=== PATIENT | male | born 1955 | race Caucasian/White ===

== ENCOUNTER 2020-03-29 08:39 | Emergency (ER) | payer OTHER ==
--- NOTE | 2020-03-29 08:59 | EDM.PDOC ---
ED HPI GENERAL MEDICAL PROBLEM - General Chief Complaint: Cardiovascular Problem Stated Complaint: SENT FROM [facility] Time Seen by Provider: 03/29/20 08:53 Source of Information: Reports: Patient History Limitations: Reports: No Limitations - History of Present Illness INITIAL COMMENTS - FREE TEXT/NARRATIVE: 64-year-old male presents to the ED generally just not feeling well. He states he started to feel unwell about 1400 hrs. yesterday afternoon while at work. 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 Still has a bit of a frontal headache. Also had a vague pressure in his anterior central chest which is still present but very mild this morning. Did not sleep very well last night. Went to the walk-in clinic today and was identified to be hypertensive. He used to be on blood pressure medication when he moved from [facility] his medications were never refilled. Smokes pack to a pack and half of cigarettes daily. Has a 19-hvpl-eqbv history. He has no known cardiac disease no previous stroke. Denies feeling dizzy lightheaded or short of breath. Onset: Gradual Onset Date: 03/28/20 Onset Time: 14:00 (Did feel generally unwell yesterday afternoon about 1400 hrs. He stayed at work until about 1600 hrs. and went home) Duration: Hour(s):, Constant Location: Reports: Chest, Generalized (Generally not feeling well. Frontal headache etc.) Quality: Reports: Pressure Severity: Mild Improves with: Reports: None Worsens with: Reports: None, Other Context: Denies: Activity, Exercise (Walking activity do not seem to make the chest pressure any worse.), Lifting, Sick Contact, Trauma, Other Associated Symptoms: Reports: Chest Pain (Is no sputum production as he is a smoker.), Cough, cough w sputum, Headaches, Malaise. 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: Reports: Other (see below) (Patient date did take 324 mg of aspirin this morning) Chest Pain Score (Numeric/FACES): 5 - Related Data Allergies Allergy/AdvReac Type Severity Reaction Status Date / Time No Known Allergies Allergy Verified 03/29/20 08:48 Home Meds: Home Meds Aspirin 324 mg PO DAILY 03/29/20 [History] Losartan [Cozaar] 100 mg PO DAILY #30 tab 03/29/20 [Rx] Omeprazole Magnesium [Prilosec Otc] 20 mg PO DAILY 03/29/20 [History] amLODIPine [Norvasc] 10 mg PO DAILY #30 tab 03/29/20 [Rx] Past Medical History HEENT History: Reports: None Cardiovascular History: Reports: High Cholesterol, Hypertension Respiratory History: Reports: None Gastrointestinal History: Reports: GERD (Takes omeprazole daily.) Genitourinary History: Reports: None Musculoskeletal History: Reports: None Psychiatric History: Reports: None Endocrine/Metabolic History: Reports: None Hematologic History: Reports: None Immunologic History: Reports: None Oncologic (Cancer) History: Reports: None Dermatologic History: Reports: None - Infectious Disease History Infectious Disease History: Reports: None - Past Surgical History Neurological Surgical History: Reports: C-Spine, Spinal Fusion Social & Family History - Tobacco Use Smoking Status *Q: Current Every Day Smoker (72-20-uefl-year history.) Tobacco Use Within Last Twelve Months: Cigarettes Years of Tobacco use: 46 Packs/Tins Daily: 1.5 - Caffeine Use Caffeine Use: Reports: Coffee - Alcohol Use Alcohol Use History: Yes Days Per Week of Alcohol Use: 7 Days Per Week of Alcohol Use Comment: Really has 2 drinks of bourbon after work and 1 before bed nightly. Number of Drinks Per Day: 3 Total Drinks Per Week: 21 Alcohol Use Frequency: Daily - Recreational Drug Use Recreational Drug Use: No - Living Situation & Occupation Occupation: Employed ED ROS GENERAL - Review of Systems Review Of Systems: See Below Constitutional: Reports: Malaise, Fatigue, Decreased Appetite. Denies: Fever, Chills HEENT: Reports: Glasses Respiratory: Reports: Cough, Sputum (Occasional sputum production.). Denies: Shortness of Breath, Wheezing, Pleuritic Chest Pain Cardiovascular: Reports: Chest Pain, Blood Pressure Problem (Chest discomfort since yesterday afternoon). Denies: Claudication ( diagnosed with hypertension 4 years ago but has been off medication since 2017.), Dyspnea on Exertion, Edema, Lightheadedness, Orthopnea, Palpitations Endocrine: Reports: Fatigue GI/Abdominal: Reports: No Symptoms : Reports: Frequency, Other (Nocturia x2.) Musculoskeletal: Reports: Back Pain, Joint Pain Skin: Reports: No Symptoms (His hips shoulders and neck at times) Neurological: Reports: No Symptoms Psychiatric: Reports: No Symptoms Hematologic/Lymphatic: Reports: No Symptoms Immunologic: Reports: No Symptoms ED EXAM, GENERAL - Physical Exam Exam: See Below Exam Limited By: No Limitations General Appearance: Alert, WD/WN, No Apparent Distress, Other (Temperature is 36.5 pulse is 60 and sinus respiratory 16 BP 173/88. Pulse ox 94% on room air) Eye Exam: Bilateral Eye: Normal Inspection, PERRL Neck: Normal Inspection, Full Range of Motion. No: Carotid Bruit, Lymphadenopathy (L), Lymphadenopathy (R), Thyromegaly Respiratory/Chest: No Respiratory Distress, Lungs Clear, Normal Breath Sounds, No Accessory Muscle Use. No: Wheezing Cardiovascular: Normal Peripheral Pulses, Regular Rate, Rhythm, No Edema, No Gallop, No Murmur, No Rub Peripheral Pulses: 2+: Posterior Tibial (L), Posterior Tibial (R), Dorsalis Pedis (L), Dorsalis Pedis (R) GI/Abdominal: Normal Bowel Sounds, Soft, Non-Tender, No Organomegaly, No Abnormal Bruit, No Mass, Pelvis Stable, Other (No surgical scars. I reexamined his abdomen after the CT identified aortic aneurysm and I can definitely feel the aneurysm on deep palpation in the midline.) Back Exam: Normal Inspection, Full Range of Motion. No: CVA Tenderness (L), CVA Tenderness (R) Extremities: Normal Inspection, Normal Range of Motion, Non-Tender, No Pedal Edema Neurological: Alert, Oriented, CN II-XII Intact, Normal Cognition, Normal Gait Psychiatric: Normal Affect, Normal Mood Skin Exam: Warm, Dry, Intact, Normal Color, No Rash EKG INTERPRETATION EKG Date: 03/29/20 Time: 08:54 Rhythm: NSR Rate (Beats/Min): 71 (First-degree AV block) [place]: Normal P-Wave: Enlarged (Consider left atrial hypertrophy.) QRS: Other (There are Q waves V1 V2 and V3 suggestive of an old anteroseptal myocardial infarction. The left ventricular perfect raphe pattern with strain.) ST-T: Other (T wave flattening in leads I and inverted in aVL nonspecific findings. Mildly decreased voltage in the limb leads.) QT: Prolonged (Mildly prolonged) EKG Interpretation Comments: Abnormal ECG Course - Vital Signs Last Recorded V/S: Last Vital Signs Temp 36.5 C 03/29/20 08:43 Pulse 56 L 03/29/20 10:25 Resp 16 03/29/20 10:25 BP 181/89 H 03/29/20 11:42 Pulse Ox 94 L 03/29/20 10:25 - Orders/Labs/Meds Orders: Active Orders 24 hr Category Date Time Status EKG 12 Lead [EKG Documentation Completion] [RC] ROUTINE Care 03/29/20 08:53 Active Dextrose 5%-0.9% NaCl [Dextrose 5%-Normal Saline] 1,000 Med 03/29/20 09:15 Active ml IV ASDIRECTED Sodium Chloride 0.9% [Normal Saline] 100 ml Med 03/29/20 11:00 Active IV ASDIRECTED Sodium Chloride 0.9% [Saline Flush] Med 03/29/20 10:46 Active 10 ml FLUSH ONETIME PRN Medication Orders Dextrose/Sodium Chloride (Dextrose 5%-Normal Saline) 1,000 mls @ 500 mls/hr IV ASDIRECTED KRIS Last Admin: 03/29/20 09:14 Dose: 500 mls/hr Documented by: KEAGAN Sodium Chloride (Normal Saline) 100 mls @ 75 mls/hr IV ASDIRECTED KRIS Last Admin: 03/29/20 10:59 Dose: 75 mls/hr Documented by: CIRO Sodium Chloride (Saline Flush) 10 ml FLUSH ONETIME PRN PRN Reason: IV FLUSH Last Admin: 03/29/20 10:59 Dose: 10 ml Documented by: CIRO Labs: Laboratory Tests 03/29/20 03/29/20 03/29/20 Range/Units 08:45 08:45 08:45 WBC 8.76 (4.23-9.07) K/mm3 RBC 4.94 (4.63-6.08) M/mm3 Hgb 15.0 (13.7-17.5) gm/dl Hct 44.3 (40.1-51.0) % MCV 89.7 (79.0-92.2) fl MCH 30.4 (25.7-32.2) pg MCHC 33.9 (32.2-35.5) g/dl RDW Std Deviation 46.1 H (35.1-43.9) fL Plt Count 279 (163-337) K/mm3 MPV 10.1 (9.4-12.3) fl Neut % (Auto) 64.9 (34.0-67.9) % Lymph % (Auto) 23.4 (21.8-53.1) % [place] % (Auto) 8.7 (5.3-12.2) % Eos % (Auto) 2.7 (0.8-7.0) Baso % (Auto) 0.2 (0.1-1.2) % Neut # (Auto) 5.68 H (1.78-5.38) K/mm3 Lymph # (Auto) 2.05 (1.32-3.57) K/mm3 [place] # (Auto) 0.76 (0.30-0.82) K/mm3 Eos # (Auto) 0.24 (0.04-0.54) K/mm3 Baso # (Auto) 0.02 (0.01-0.08) K/mm3 PT 10.2 (9.7-12.0) SECONDS INR 0.93 APTT (22-31) SECONDS D-Dimer, Quantitative (0.19-0.50) mg/L Sodium (136-145) mEq/L Potassium (3.5-5.1) mEq/L Chloride (98-107) mEq/L Carbon Dioxide (21-32) mEq/L Anion Gap (5-15) BUN (7-18) mg/dL Creatinine (0.7-1.3) mg/dL Est Cr Clr Drug Dosing mL/min Estimated GFR (MDRD) (>60) mL/min BUN/Creatinine Ratio (14-18) Glucose (80-115) mg/dL Calcium (8.5-10.1) mg/dL Magnesium 2.0 (1.8-2.4) mg/dl Total Bilirubin (0.2-1.0) mg/dL AST (15-37) U/L ALT (16-63) U/L Alkaline Phosphatase (46-116) U/L CK-MB (CK-2) 2.1 (0-3.6) ng/ml Troponin I < 0.017 (0.00-0.056) ng/mL C-Reactive Protein 0.6 (<1.0) mg/dL NT-Pro-B Natriuret Pep (0-125) pg/mL Total Protein (6.4-8.2) g/dl Albumin (3.4-5.0) g/dl Globulin gm/dL Albumin/Globulin Ratio (1-2) Urine Color (Yellow) Urine Appearance (Clear) Urine pH (5.0-8.0) Ur Specific [place] (1.005-1.030) Urine Protein (Negative) Urine Glucose (UA) (Negative) Urine Ketones (Negative) Urine Occult Blood (Negative) Urine Nitrite (Negative) Urine Bilirubin (Negative) Urine Urobilinogen (0.2-1.0) Ur Leukocyte Esterase (Negative) Urine RBC (0-5) /hpf Urine WBC (0-5) /hpf Ur Squamous Epith Cells (0-5) /hpf Urine Bacteria (FEW) /hpf Urine Mucus (FEW) /hpf 03/29/20 03/29/20 03/29/20 Range/Units 08:45 08:45 08:45 WBC (4.23-9.07) K/mm3 RBC (4.63-6.08) M/mm3 Hgb (13.7-17.5) gm/dl Hct (40.1-51.0) % MCV (79.0-92.2) fl MCH (25.7-32.2) pg MCHC (32.2-35.5) g/dl RDW Std Deviation (35.1-43.9) fL Plt Count (163-337) K/mm3 MPV (9.4-12.3) fl Neut % (Auto) (34.0-67.9) % Lymph % (Auto) (21.8-53.1) % [place] % (Auto) (5.3-12.2) % Eos % (Auto) (0.8-7.0) Baso % (Auto) (0.1-1.2) % Neut # (Auto) (1.78-5.38) K/mm3 Lymph # (Auto) (1.32-3.57) K/mm3 [place] # (Auto) (0.30-0.82) K/mm3 Eos # (Auto) (0.04-0.54) K/mm3 Baso # (Auto) (0.01-0.08) K/mm3 PT (9.7-12.0) SECONDS INR APTT 28 (22-31) SECONDS D-Dimer, Quantitative 0.98 H (0.19-0.50) mg/L Sodium 143 (136-145) mEq/L Potassium 3.7 (3.5-5.1) mEq/L Chloride 103 (98-107) mEq/L Carbon Dioxide 27 (21-32) mEq/L Anion Gap 16.7 H (5-15) BUN 14 (7-18) mg/dL Creatinine 1.0 (0.7-1.3) mg/dL Est Cr Clr Drug Dosing 86.77 mL/min Estimated GFR (MDRD) > 60 (>60) mL/min BUN/Creatinine Ratio 14.0 (14-18) Glucose 97 (80-115) mg/dL Calcium 9.1 (8.5-10.1) mg/dL Magnesium (1.8-2.4) mg/dl Total Bilirubin 0.4 (0.2-1.0) mg/dL AST 20 (15-37) U/L ALT 26 (16-63) U/L Alkaline Phosphatase 90 (46-116) U/L CK-MB (CK-2) (0-3.6) ng/ml Troponin I (0.00-0.056) ng/mL C-Reactive Protein (<1.0) mg/dL NT-Pro-B Natriuret Pep 526 H (0-125) pg/mL Total Protein 7.8 (6.4-8.2) g/dl Albumin 3.8 (3.4-5.0) g/dl Globulin 4.0 gm/dL Albumin/Globulin Ratio 1.0 (1-2) Urine Color (Yellow) Urine Appearance (Clear) Urine pH (5.0-8.0) Ur Specific [place] (1.005-1.030) Urine Protein (Negative) Urine Glucose (UA) (Negative) Urine Ketones (Negative) Urine Occult Blood (Negative) Urine Nitrite (Negative) Urine Bilirubin (Negative) Urine Urobilinogen (0.2-1.0) Ur Leukocyte Esterase (Negative) Urine RBC (0-5) /hpf Urine WBC (0-5) /hpf Ur Squamous Epith Cells (0-5) /hpf Urine Bacteria (FEW) /hpf Urine Mucus (FEW) /hpf 06/24/20 Range/Units 09:03 WBC (4.23-9.07) K/mm3 RBC (4.63-6.08) M/mm3 Hgb (13.7-17.5) gm/dl Hct (40.1-51.0) % MCV (79.0-92.2) fl MCH (25.7-32.2) pg MCHC (32.2-35.5) g/dl RDW Std Deviation (35.1-43.9) fL Plt Count (163-337) K/mm3 MPV (9.4-12.3) fl Neut % (Auto) (34.0-67.9) % Lymph % (Auto) (21.8-53.1) % [place] % (Auto) (5.3-12.2) % Eos % (Auto) (0.8-7.0) Baso % (Auto) (0.1-1.2) % Neut # (Auto) (1.78-5.38) K/mm3 Lymph # (Auto) (1.32-3.57) K/mm3 [place] # (Auto) (0.30-0.82) K/mm3 Eos # (Auto) (0.04-0.54) K/mm3 Baso # (Auto) (0.01-0.08) K/mm3 PT (9.7-12.0) SECONDS INR APTT (22-31) SECONDS D-Dimer, Quantitative (0.19-0.50) mg/L Sodium (136-145) mEq/L Potassium (3.5-5.1) mEq/L Chloride (98-107) mEq/L Carbon Dioxide (21-32) mEq/L Anion Gap (5-15) BUN (7-18) mg/dL Creatinine (0.7-1.3) mg/dL Est Cr Clr Drug Dosing mL/min Estimated GFR (MDRD) (>60) mL/min BUN/Creatinine Ratio (14-18) Glucose (80-115) mg/dL Calcium (8.5-10.1) mg/dL Magnesium (1.8-2.4) mg/dl Total Bilirubin (0.2-1.0) mg/dL AST (15-37) U/L ALT (16-63) U/L Alkaline Phosphatase (46-116) U/L CK-MB (CK-2) (0-3.6) ng/ml Troponin I (0.00-0.056) ng/mL C-Reactive Protein (<1.0) mg/dL NT-Pro-B Natriuret Pep (0-125) pg/mL Total Protein (6.4-8.2) g/dl Albumin (3.4-5.0) g/dl Globulin gm/dL Albumin/Globulin Ratio (1-2) Urine Color Yellow (Yellow) Urine Appearance Clear (Clear) Urine pH 7.5 (5.0-8.0) Ur Specific [place] 1.015 (1.005-1.030) Urine Protein Negative (Negative) Urine Glucose (UA) Negative (Negative) Urine Ketones Negative (Negative) Urine Occult Blood Trace-lysed H (Negative) Urine Nitrite Negative (Negative) Urine Bilirubin Negative (Negative) Urine Urobilinogen 0.2 (0.2-1.0) Ur Leukocyte Esterase Negative (Negative) Urine RBC 0-5 (0-5) /hpf Urine WBC 0-5 (0-5) /hpf Ur Squamous Epith Cells 0-5 (0-5) /hpf Urine Bacteria Rare (FEW) /hpf Urine Mucus Not seen (FEW) /hpf Meds: Medications Generic Name Dose Route Start Last Admin Trade Name Freq PRN Reason Stop Dose Admin Dextrose/Sodium Chloride 1,000 mls @ 500 mls/hr 03/29/20 09:15 03/29/20 09:14 Dextrose 5%-Normal Saline IV 500 mls/hr ASDIRECTED KRIS Administration Sodium Chloride 100 mls @ 75 mls/hr 03/29/20 11:00 03/29/20 10:59 Normal Saline IV 75 mls/hr ASDIRECTED KRIS Administration Sodium Chloride 10 ml 03/29/20 10:46 03/29/20 10:59 Saline Flush FLUSH 10 ml ONETIME PRN Administration IV FLUSH Discontinued Medications Generic Name Dose Route Start Last Admin Trade Name Freq PRN Reason Stop Dose Admin Amlodipine Besylate 10 mg 03/29/20 11:20 03/29/20 11:42 Norvasc PO 03/29/20 11:21 10 mg ONETIME ONE Administration Aspirin 324 mg 03/29/20 09:03 03/29/20 09:16 Aspirin PO 03/29/20 09:04 Not Given ONETIME ONE Enalaprilat 1.25 mg 03/29/20 11:17 03/29/20 11:40 Vasotec Iv IVPUSH 03/29/20 11:18 1.25 mg ONETIME ONE Administration Iopamidol 100 ml 03/29/20 10:46 03/29/20 10:59 [id number] (76%) IVPUSH 03/29/20 10:47 100 ml ONETIME ONE Administration - Radiology Interpretation Free Text/Narrative:: 64-year-old male attends the ED at the request of the walk-in clinic [place] at [place]. He presented there with elevated blood pressure and generally not feeling well with 1 of his complaints being mild central chest pressure discomfort since yesterday afternoon. Patient has a past history of hypertension and has been off medication since 2016 when he moved from [place] to to [place] he never sought a doctor or refill medications. He is a pack and half a day smoker. Therefore he has multiple risk factors for cardiovascular disease. He has a mild headache at this time very minimal mild central chest pressure discomfort. No shortness of breath. His ECG however shows evidence of an old anteroseptal myocardial infarction with left ventricular hypertrophy and strain pattern. Patient has no history of having myocardial infarction. Therefore he will have a complete cardiac work-up. He did take 325 mg of aspirin this morning. His chest pain is so mild that I will not place him on nitroglycerin at this time. ECG does not show anything acute. Plan portable chest x-ray routine labs and a urinalysis to be performed. Blood pressure be monitored. It was 173/88 on my last assessment - Re-Assessments/Exams Free Text/Narrative Re-Assessment/Exam: 03/29/20 09:35White count is 8.76. Auto differential shows 65% neutrophils. Hemoglobin is 15.0 with hematocrit of 44.3. MCV is normal at 89.7. Platelet count normal at 279,000. PT is 10.2 with an INR of 0.93. PTT is 28. D-dimer minimally elevated at 0.98. Urinalysis shows trace of lysed occult blood but no proteinuria. No signs of infection. Recheck on his blood pressure by myself was 136/80. Chest x-ray done portably is essentially within normal limits.'s are clear cardiac silhouette is upper limits of normal. 03/29/20 09:50Magnesium is 2.0. CK-MB fraction is 2.1 troponin I is less than 0.017. C-reactive protein is 0.6. BNP is mildly elevated at 526. CMP is pending to identify his renal function. It appears that we will have to proceed with a CT pulmonary angiogram. 03/29/20 10:31 Chemistry reveals a sodium of 143 potassium 3.7. Chloride 103 with a bicarb of 27. Anion gap is elevated at 16.7 indicating the patient is mildly volume depleted. BUN was 14 with a creatinine of 1.0. GFR is greater than 60. Glucose is 97 with a calcium of 9.1. Magnesium 2.0 liver function normal C-reactive protein 0.6. Total protein 7.8 with an albumin fraction of 3.8. Proceed with CT pulmonary angiogram due to elevated d-dimer. Patient advised that we will now proceed with a CT pulmonary angiogram to rule out a pulmonary embolism. 03/29/20 11:[address] Hector's nurse at [facility] in [place] and she will notify the patient later today with an appointment time. In the meantime I will fax records obtained on today's visit to Dr. Hector's office. I will place the patient on losartan 100 mg every morning and amlodipine 10 mg every night at bedtime. Does have a home blood pressure cuff that he will start writing down the numbers over the next several weeks so that we know we have gained control of his blood pressure. 03/29/20 12:04 The radiologist agrees with my finding of abdominal aortic aneurysm on CT scan. He measured at 45.9 cm. He agrees that there is no evidence of pulmonary emboli. Departure - Departure Time of Disposition: 11:49 Disposition: Home, Self-Care 01 Reason for Transfer *Q: Other Condition: Fair Clinical Impression: Non-cardiac chest pain, Abdominal aortic aneurysm (AAA) greater than 5.5 cm in diameter in male, Uncontrolled hypertension Nicotine dependence Qualifiers: Nicotine product type: cigarettes Substance use status: uncomplicated Qualified Code(s): F17.210 - Nicotine dependence, cigarettes, uncomplicated Hypertensive heart disease Qualifiers: Heart failure presence: with heart failure Heart failure type: unspecified Qualified Code(s): I11.0 - Hypertensive heart disease with heart failure Prescriptions: Losartan [Cozaar] 100 mg PO DAILY #30 tab amLODIPine [Norvasc] 10 mg PO DAILY #30 tab Instructions: Abdominal Aortic Aneurysm, [id number], Hypertension, Adult, [id number], Tobacco Use Disorder, Steps to Quit Smoking Referrals: Juan Alberto Thompson MD [Primary Care Provider] - Forms: ED Department Discharge Additional Instructions: Evaluation in the emergency room today in regards to nonspecific chest discomfort noted yesterday and generally not feeling all that well. Identified that your blood pressure was elevated at the clinic and your blood pressure readings with the wrist monitor/cuff reveal a blood pressure that is persistently elevated on the top number in the 180s. It should be 140 or less. The bottom number is mildly elevated at 88 and ideally we would like it under 85. Testing in the ED revealed that the heart is enlarged and indicates that your blood pressure has likely been elevated for a lengthy period of time causing the heart to enlarged similar to taking it to a gym and making it work harder. You will therefore need to take blood pressure medication losartan 100 mg every morning and amlodipine 10 mg every night at bedtime for blood pressure control. Continue to check your blood pressure with your cuff at home and write down the numbers and the time of day so that we know for sure we have gain control of your blood pressure. Lab test done today revealed that she developed a mild increased fluid in the lungs which we call congestive heart failure but is very minimal at this point time. Lab tests also revealed an elevated d-dimer suggesting that there could be a blood clot in the lungs and therefore a CT pulmonary angiogram of the chest was performed which revealed heart to be enlarged but no evidence of a blood clot in the lung. The CT also goes down to the upper abdomen and coincidentally identified a aortic abdominal aneurysm which means a ballooning of the abdominal aorta which is normally 2.5 cm in diameter. I measured yours at 6.2 cm and the radiologist measured it at 5.9 cm. This deserves immediate attention as once it goes past 5 cm there is a much higher risk of spontaneous rupture. Therefore contacted cardiovascular surgeon Dr. Hector in [place] at [facility] and his nurse will get back to you with an appointment time today ,to see him in consultation. Sepsis Event Note (ED) - Evaluation Sepsis Screening Result: No Definite Risk - Focused Exam Vital Signs: Vital Signs Temp Pulse Resp BP BP Pulse Ox 03/29/20 11:42 181/89 H 03/29/20 11:40 181/89 H 03/29/20 10:25 56 L 16 182/88 H 94 L 03/29/20 08:43 36.5 C 68 16 173/88 H 94 L - My Orders Last 24 Hours: My Active Orders 03/29/20 08:53 EKG 12 Lead [EKG Documentation Completion] [RC] ROUTINE 03/29/20 09:15 Dextrose 5%-0.9% NaCl [Dextrose 5%-Normal Saline] 1,000 ml IV ASDIRECTED 03/29/20 10:46 Sodium Chloride 0.9% [Saline Flush] 10 ml FLUSH ONETIME PRN 03/29/20 11:00 Sodium Chloride 0.9% [Normal Saline] 100 ml IV ASDIRECTED - Assessment/Plan Last 24 Hours: My Active Orders 03/29/20 08:53 EKG 12 Lead [EKG Documentation Completion] [RC] ROUTINE 03/29/20 09:15 Dextrose 5%-0.9% NaCl [Dextrose 5%-Normal Saline] 1,000 ml IV ASDIRECTED 03/29/20 10:46 Sodium Chloride 0.9% [Saline Flush] 10 ml FLUSH ONETIME PRN 03/29/20 11:00 Sodium Chloride 0.9% [Normal Saline] 100 ml IV ASDIRECTED
[2020-03-29] MEDS ORDERED: Aspirin 81 MG Tab.Chew PO ONE (09:03)
[2020-03-29] MEDS ORDERED: Dextrose 5%-0.9% NaCl 1,000 ML IV SCH (09:15)
--- NOTE | 2020-03-29 09:50 | CR ---
Chest: Portable view of the chest was obtained. Comparison: No prior chest imaging. Heart size and mediastinum are within normal limits for portable technique. Lungs are clear with no acute parenchymal change. Bony structures are grossly intact. Partially visualized prior cervical spine surgery is noted. Impression: 1. Nothing acute is appreciated on portable chest x-ray. Diagnostic code #2 This report was dictated in MDT
[2020-03-29] MEDS ORDERED: Sodium Chloride 0.9% 10 ML Syringe FLUSH PRN (10:46)
[2020-03-29] MEDS ORDERED: Iopamidol 755 Mg/ML 100 ML Bottle IVPUSH ONE (10:46)
[2020-03-29] MEDS ORDERED: Sodium Chloride 0.9% 100 ML IV SCH (11:00)
[2020-03-29] MEDS ORDERED: Enalaprilat 1.25 MG/ML SDV IVPUSH ONE (11:17)
[2020-03-29] MEDS ORDERED: amLODIPine 10 MG Tab PO ONE (11:20)
--- NOTE | 2020-03-29 11:21 | CT ---
CT chest Technique: Multiple axial sections through the chest were obtained. Intravenous contrast was utilized. Study has been performed as a pulmonary angiogram protocol. Findings: Pulmonary arteries are well-opacified. No filling defects are seen to indicate pulmonary embolism. Mediastinum and hilar regions show no adenopathy. Aorta shows atherosclerotic calcification without aneurysm. No pericardial thickening is seen. Heart is slightly enlarged. Abdominal aortic aneurysm is partially visualized within the abdomen which measures 5.9 cm. Lungs are clear with no acute parenchymal change. No pleural effusions are seen. Bone window settings were reviewed which shows previous lower cervical spine surgery. No acute osseous finding is appreciated. Impression: 1. Abdominal aortic aneurysm partially visualized measuring 5.9 cm. 2. No findings of pulmonary embolism. 3. No other acute finding is appreciated. Diagnostic code #3 This report was dictated in MDT
== END 2020-03-29 12:10 | disposition home or self-care (01) ==
LOC: JD.ED 08:39
DX: I11.0 Hypertensive heart disease with heart failure (principal); I50.9 Heart failure, unspecified; R07.89 Other chest pain; I71.4 Abdominal aortic aneurysm, without rupture; F17.210 Nicotine dependence, cigarettes, uncomplicated; I44.0 Atrioventricular block, first degree; K21.9 Gastro-esophageal reflux disease without esophagitis; Z79.82 Long term (current) use of aspirin; Z79.899 Other long term (current) drug therapy
CPT/HCPCS: 36415; 71045; 71275; 80053; 81001; 82553; 83735; 83880; 84484; 85025; 85379; 85610; 85730; 86140; 93005; 96374; 99285; A9270; J7042; J7050; Q9967

== ENCOUNTER 2021-11-09 14:01 | Emergency (ER) | payer OTHER ==
[2021-11-09] MEDS ORDERED: Sodium Chloride 0.9% 10 ML Syringe FLUSH PRN (14:23)
[2021-11-09] MEDS ORDERED: Potassium Chloride 20 MEQ Tab.ER PO ONE (14:57)
[2021-11-09 15:25] LABS: CORONAVIRUS COVID-19 NAA POSITIVE (NEGATIVE)
== END 2021-11-09 15:57 | disposition home or self-care (01) ==
LOC: JD.ED 14:01
DX: U07.1 COVID-19 (principal); E78.00 Pure hypercholesterolemia, unspecified; I10 Essential (primary) hypertension; K21.9 Gastro-esophageal reflux disease without esophagitis; Z79.899 Other long term (current) drug therapy; Z79.82 Long term (current) use of aspirin; Z72.0 Tobacco use
CPT/HCPCS: 0240U; 36415; 71045; 80053; 83735; 84484; 85025; 85610; 85730; 93005; 99285; A9270; 93010

== ENCOUNTER 2021-12-14 07:29 | Emergency (ER) | payer BC, MEDICARE ==
[2021-12-14] MEDS ORDERED: Aspirin 81 MG Tab.Chew PO ONE (08:00)
[2021-12-14] MEDS ORDERED: Sodium Chloride 0.9% 10 ML Syringe FLUSH PRN (09:20)
[2021-12-14] MEDS ORDERED: Iopamidol 755 Mg/ML 100 ML Bottle IVPUSH ONE (09:20)
[2021-12-14] MEDS ORDERED: Sodium Chloride 0.9% 100 ML IV SCH (09:30)
== END 2021-12-14 11:45 | disposition home or self-care (01) ==
LOC: JD.ED 07:29
DX: R07.89 Other chest pain (principal); I10 Essential (primary) hypertension; F17.200 Nicotine dependence, unspecified, uncomplicated; E78.00 Pure hypercholesterolemia, unspecified; Z79.82 Long term (current) use of aspirin; Z79.899 Other long term (current) drug therapy
CPT/HCPCS: 36415; 71045; 71275; 80053; 84484; 85025; 85379; 85610; 85730; 99285; A9270; Q9967; 93010

== ENCOUNTER 2022-06-24 00:33 | Emergency (ER) | payer MEDICARE, BC ==
[2022-06-24 01:31] LABS: ESTIMATED GFR 74 mL/min (>60)
[2022-06-24 02:45] LABS: CORONAVIRUS COVID-19 NAA POSITIVE (NEGATIVE)
== END 2022-06-24 03:20 | disposition home or self-care (01) ==
LOC: JD.ED 00:33
DX: U07.1 COVID-19 (principal); K21.9 Gastro-esophageal reflux disease without esophagitis; I10 Essential (primary) hypertension; E78.00 Pure hypercholesterolemia, unspecified; F17.210 Nicotine dependence, cigarettes, uncomplicated; Z79.82 Long term (current) use of aspirin; Z79.899 Other long term (current) drug therapy
CPT/HCPCS: 0240U; 36415; 71046; 80053; 83690; 83735; 84484; 85025; 85379; 93005; 99285; 93010; 99284